=== PATIENT | male | born 1975 | race Hispanic/Latino ===

== ENCOUNTER 2017-08-01 00:50 | Emergency (ER) | payer OTHER ==
[2017-08-01] MEDS ORDERED: NORCO 7.5/325 PO ONE (07:13)
--- NOTE | 2017-08-01 07:14 | Emergency Department Report ---
ED Animal Bite HPI - General Chief Complaint: Animal Bite Stated Complaint: SPIDER BITE ON THE UPPER LIP Time Seen by Provider: 08/01/17 07:03 Source: patient Mode of arrival: Ambulatory Limitations: No Limitations - History of Present Illness Initial Comments: This is a 42-year-old male that presents with swollen upper lip status post spider bite 2 days ago. Patient reports waking up Saturday morning with tenderness to the upper lip but noticed a black spider crawling on the period he killed it and noticed another one crawling up the wall. When he woke up Saturday morning he noticed upper lip swollen with an abscess on right upper side of lip. He put peroxide on wound and squeezed pus out. He decided to take Benadryl 3 times yesterday to help with swelling and pain with no improvement of symptoms. He decided to come into the ER for further evaluation when he woke up around 6 PM last night. Admits to swelling, pain, abscess to upper lip. Denies difficulty swallowing, drooling, and numbness or tingling. MD Complaint: animal bite (spider bite) -: days(s) (2 days) Location: mouth (upper lip) Animal: other (spider) Animal Control Notified: No Description: immunizations unknown Mechanism: bite Pain Description: constant Severity scale (0 -10): 10 Context: possible exposure while a Associated Symptoms: erythema, discharge from wound. denies: bleeding, fever, chills, rash, loss of consciousness, cough, headache, diaphoresis, shortness of breath Treatments Prior to Arrival: irrigation - Related Data Patient Tetanus UTD: No Previous Rx's Medication Instructions Recorded Last Taken Type Acetaminophen/Codeine [Tylenol 1 tab PO Q6H PRN #15 tab 08/01/17 Unknown Rx /Codeine # 3 tab] Sulfamethoxazole/Trimethoprim 1 each PO BID 10 Days #20 tablet 08/01/17 Unknown Rx [Bactrim DS TAB] Allergies Allergy/AdvReac Type Severity Reaction Status Date / Time No Known Allergies Allergy Unverified 08/01/17 01:25 ED Review of Systems ROS: Stated complaint: SPIDER BITE ON THE UPPER LIP Other details as noted in HPI Constitutional: denies: chills, fever Respiratory: denies: cough, shortness of breath, wheezing Cardiovascular: denies: chest pain, palpitations Gastrointestinal: denies: abdominal pain, nausea, diarrhea Skin: lesions (abscess on upper lip on the right side). denies: rash Neurological: denies: headache, weakness, paresthesias ED Past Medical Hx - Past Medical History Previous Medical History?: Yes Hx Hypertension: Yes Additional medical history: high cholesterol - Surgical History Past Surgical History?: Yes Hx Cholecystectomy: Yes - Social History Smoking Status: Current Every Day Smoker Substance Use Type: None - Medications Home Medications: Home Medications Medication Instructions Recorded Confirmed Last Taken Type Acetaminophen/Codeine [Tylenol 1 tab PO Q6H PRN #15 tab 08/01/17 Unknown Rx /Codeine # 3 tab] Sulfamethoxazole/Trimethoprim 1 each PO BID 10 Days #20 tablet 08/01/17 Unknown Rx [Bactrim DS TAB] ED Physical Exam - General Limitations: No Limitations General appearance: alert, in no apparent distress - Respiratory Respiratory exam: Present: normal lung sounds bilaterally. Absent: respiratory distress, wheezes, rales, rhonchi, stridor, accessory muscle use - Cardiovascular Cardiovascular Exam: Present: regular rate, normal rhythm, normal heart sounds. Absent: systolic murmur, diastolic murmur, rubs, gallop - GI/Abdominal GI/Abdominal exam: Present: soft, normal bowel sounds. Absent: distended, tenderness, guarding, rebound, rigid, organomegaly, mass - Neurological Exam Neurological exam: Present: alert, oriented X3, normal gait - Psychiatric Psychiatric exam: Present: normal affect, normal mood - Skin Skin exam: Present: warm, dry, intact, normal color, erythema (1 cm erythematous nodule, upper lip, right side, tender, purulent discharge). Absent : rash ED Course Vital Signs 08/01/17 08/01/17 08/01/17 01:15 07:54 07:55 Temperature 98.9 F Pulse Rate 89 85 Respiratory 16 18 18 Rate Blood Pressure 157/92 O2 Sat by Pulse 99 99 Oximetry 08/01/17 08/01/17 08/01/17 08:50 08:54 08:55 Temperature 98.4 F Pulse Rate 75 Respiratory 18 18 Rate Blood Pressure 148/86 O2 Sat by Pulse 97 Oximetry Critical care attestation.: If time is entered above; I have spent that time in minutes in the direct care of this critically ill patient, excluding procedure time. Critical Care Time: This is a 42 y.o. male that presents with a painful abscess to upper lid on the right side for 2 days. Patient is stable and examined by me. Physical assessment of 1 cm fluctuance nodule active purulent drainage. No acute signs of distress noted. Given norco 7.5 mg po, tetantus vaccine, and bactrim DS once in ER. Improvement of pain. Wound is actively draining, didn't I&D at this time. Discussed plan to start bactrim DS and tyenol #3 with patient. Educated patient on follow up plan and wound reassessed in 2-3 days by PCP. Patient agrees to ED plan of care. Discharged home and follow up with PCP in 2-3 days. ED Disposition Clinical Impression: Abscess of lip Spider bite wound Qualifiers: Encounter type: initial encounter Injury intent: accidental or unintentional Qualified Code(s): T63.301A - Toxic effect of unspecified spider venom, accidental (unintentional), initial encounter Disposition: TO HOME OR SELFCARE Is pt being admited?: No Does the pt Need Aspirin: No Condition: Stable Additional Instructions: Use warm or cool compress to upper lip to decrease swelling. Complete full round of bactrim DS antibiotic as prescribed. Follow up with PCP or ER in 2-3 days. Return to ER if foul smelling discharge, swelling, or severe pain to wound. Prescriptions: Acetaminophen/Codeine [Tylenol /Codeine # 3 tab] 1 tab PO Q6H PRN #15 tab PRN Reason: Pain Sulfamethoxazole/Trimethoprim [Bactrim DS TAB] 1 each PO BID 10 Days #20 tablet Referrals: [facility] [place] [Outside] - 3-5 Days [facility] [Outside] - 3-5 Days [facility] [Outside] - 3-5 Days Forms: Work/School Release Form(ED) Time of Disposition: 09:19 Print Language: HUNGARIAN
[2017-08-01] MEDS ORDERED: BACTRIM DS PO ONE (08:37)
[2017-08-01 08:55] VITALS: BP 148/86
[2017-08-01] MEDS ORDERED: BOOSTRIX IM ONE (09:21)
== END 2017-08-01 10:09 | disposition home or self-care (01) ==
LOC: ED 00:50
DX: T63.301A Toxic effect of unspecified spider venom, accidental (unintentional), initial encounter (principal); I10 Essential (primary) hypertension; E78.00 Pure hypercholesterolemia, unspecified; Z90.49 Acquired absence of other specified parts of digestive tract; F17.200 Nicotine dependence, unspecified, uncomplicated
CPT/HCPCS: 90471; 90715; 99282